=== PATIENT | female | born 1955 | race Caucasian/White ===

== ENCOUNTER 2017-10-20 06:15 | Observation (INO) ==
[2017-10-20] MEDS ORDERED: Metoprolol Tartrate 25 MG Tablet PO ONE (06:29)
[2017-10-20] MEDS ORDERED: Chlorhexidine Gluconate 2% 1 Pack (2 Cloths) TOPICAL ONE (06:29)
[2017-10-20] MEDS ORDERED: Sodium Chlor 0.9% Inj 500 ML IV.SIG SCH (07:00)
[2017-10-20] MEDS ORDERED: Lidocaine 1%/Epinephrine 1:100,000 Inj 30 ML Vial ONE (07:12)
[2017-10-20] MEDS ORDERED: Clindamycin 600 mg/NS Premix 600 MG/50 ML PIGGYBACK IV.SIG ONE (07:25)
[2017-10-20] MEDS ORDERED: fentaNYL Citrate Inj 100 MCG/2 ML Ampul ONE (09:24)
[2017-10-20] MEDS ORDERED: Sugammadex Inj 200 MG/2 ML Vial IV.PUSH ONE (09:24)
[2017-10-20] MEDS ORDERED: Morphine Sulfate Inj 2 MG/ML Vial ONE ×2 (09:35→10:06)
[2017-10-20] MEDS ORDERED: Labetalol HCl Inj 100 MG/20 ML Vial ONE (09:46)
--- NOTE | 2017-10-20 12:09 | MP ---
cc: Nick Simon MD DATE OF OPERATION: SURGEON: Nick Simon MD PREOPERATIVE DIAGNOSES: 1. Bilateral anterior nasal stenosis. 2. Nasal airway obstruction. 3. Nasal septal deviation. 4. Hypertrophied inferior turbinates. POSTOPERATIVE DIAGNOSES: 1. Bilateral anterior nasal stenosis. 2. Nasal airway obstruction. 3. Nasal septal deviation. 4. Hypertrophied inferior turbinates. OPERATION PERFORMED: 1. Open repair, nasal septal fracture. 2. Bilateral repair of anterior nasal stenosis. 3. Bilateral submucosal resection of inferior turbinates. INDICATIONS: Documented in the history and physical. DETAILS OF PROCEDURE: The patient was taken to OR #2 and placed in the supine position. Following induction of general anesthesia and intubation, the nose was packed bilaterally with cotton pledgets saturated in 0.05% oxymetazoline and was injected with a total of 10 mL of 1% lidocaine with epinephrine into the columella, the bilateral intranasal vestibule, the nasal tip, septal mucosa and inferior turbinates. She was then prepped and draped for surgery. A W-plasty incision was made on the inferior surface of the columella. This was carried down with sharp dissection to the inferior borders of the medial crura of the lower lateral cartilages. These inferior borders were then followed anteriorly and superiorly, elevating the skin from the columella of the nasal tip and dorsum. Next, sharp dissection continued between the domes and medial crura of lower lateral cartilages until the anterior end of the quadrangular cartilage was encountered. This was displaced into the left nasal vestibule along the line of fracture approximately 5 mm posterior to the anterior nasal spine. Dissection continued of soft tissue from the quadrangular cartilage as far as the junction of the bony and cartilaginous septum. This revealed an accordion type fracture of the quadrangular cartilage causing collapse of the nasal tip and obstruction of the nasal airways bilaterally. A 2 mm area of 2 cm x 2.5 cm was removed from the quadrangular cartilage in a piecemeal fashion using a caudal elevator and Lopez-Riccardo forceps. This was completed, preserving 1.5 cm dorsal and caudal cartilaginous struts. The inferior most few millimeters of the caudal cartilaginous strut was removed to allow for return of the strut to the midline. This was completed; mucosa was elevated from the bony septum and the maxillary crest and these were removed with Lopez-Gu forceps, preserving the anterior nasal spine. A reconstruction of the tip was then begun first with suturing the caudal cartilaginous strut to the soft tissue investing the anterior nasal spine. This was done with a single suture of 5-0 clear nylon. The mucosal layers of the septum were then approximated to each other with a quilting stitch of 4-0 plain gut; 4-0 Vicryl horizontal mattress sutures were used to reattach the skin in the nasal vestibule to the caudal cartilaginous strut. Next, the columella was reconstructed incorporating a 3 mm x 15 mm segment of the quadrangular cartilage. This was held in place between the medial crura of the lower laterals using interrupted sutures of 5-0 clear nylon. Additional sutures of 5-0 clear were placed into the domes of the lower laterals to slightly elevate the nasal tip to counteract tip ptosis. The skin was then redraped over the nasal tip and the incision was closed using interrupted sutures of 5-0 fast-absorbing plain gut. When this was completed, the inferior turbinates were addressed. They were fractured out medially and stab incisions were made along their inferior surfaces. Through these incisions, submucosal soft tissue was reduced using a curette and preserving the conchal bone. The incisions were then cauterized using the suction Bovie at 35 salazar and the remnants of the inferior turbinates were then refractured to the lateral nasal wall. The nose was then packed with Merocel tampons coated in mupirocin ointment and the procedure was terminated. The patient was reversed from anesthesia and taken to recovery in good condition. There were no complications. Blood loss was 60 mL. MD MARY Pagan/barbara , 09:30 AM , 09:39 AM
--- NOTE | 2017-10-20 13:32 | ECG ---
Date Performed: 10/20/2017 Time Performed: 06:58:21 PTAGE: 62 years EKG: Sinus rhythm NORMAL ECG NO PREVIOUS TRACING DOCTOR: Gomez Kerr Interpretating Date/Time 10/20/2017 13:29:27
[2017-10-20] MEDS: Clindamycin 600 mg/NS Premix 600 MG/50 ML PIGGYBACK IV.SIG SCH (16:07)
[2017-10-20 20:27] VITALS: RESP 16
[2017-10-21] MEDS: Clindamycin 600 mg/NS Premix 600 MG/50 ML PIGGYBACK IV.SIG SCH (00:21)
[2017-10-21 04:53] VITALS: BP 155/71; PULSE 61; TEMP 96.7; O2SAT 96
[2017-10-21] MEDS ORDERED: Phenylephrine/NS 1000 MCG/10ML Syringe IV.PUSH ONE (07:30)
[2017-10-21] MEDS ORDERED: Lidocaine PF 1% Inj 5 ML Vial OTHER ONE (07:30)
== END 2017-10-21 08:34 | disposition home or self-care (01) ==
LOC: PHSDC 06:15 → PH3 06:15
PROVIDERS: ADMIT Otolaryngology; ATTEND Otolaryngology
DX: Z01.810 Encounter for preprocedural cardiovascular examination; J34.3 Hypertrophy of nasal turbinates; J34.2 Deviated nasal septum; J34.89 Other specified disorders of nose and nasal sinuses